=== PATIENT | male | born 1955 | race Caucasian/White ===

== ENCOUNTER 2016-10-28 21:56 | Emergency (ER) | payer OTHER ==
[~2016-10-28] VITALS: Ht 175.3 cm; Wt 81.8 kg
[~2016-10-28 21:56] MED LIST: GEMF600T3 PO; OXYC1TAB24 PO; SERT25TA6 PO; ZES5 PO; ZYL100 PO
[2016-10-28 22:05] VITALS: BP 154/89; PULSE 71; RESP 16; O2SAT 100
--- NOTE | 2016-10-28 22:29 | ED.REPORT ---
HPI-Abd Pain M 40 and Over Date of Service Oct 28, 2016 ED Provider: Waldemar Ellis MD Patient is a 60 year old male with a history of hypertension, hyperlipidemia, and kidney stones with prior lithotripsy who presents to the ED complaining of hematuria that began 1 month ago. Patient believes that he is currently passing a kidney stone. Patient reports associated abdominal pain, but also states that he has some chest pain. Patient states that his chest pain began at a similar time as his hematuria. Patient denies shortness of breath or dyspnea on exertion. Patient has nitroglycerin at home, which he has not used. Patient reports taking 4x 81mg aspirin earlier today. Patient also reports being constipated due to the narcotic pain medication for his chronic neck pain. Patient states that his girlfriend is currently admitted to [facility] for "the same thing". Patient admits to chills but denies nausea, vomiting, or fever. Patient is a difficult historian. Nursing Notes Stated Complaint: HEART, POSS KIDNEY STONES Chief Complaint: Male Abdominal Pain Nursing Notes Reviewed: Yes Allergies: Coded Allergies: No Known Allergies (Verified , 01/15/13) Scheduled ([Lisinopril]) MG PO DAILY Allopurinol (Allopurinol) 100 Mg Tablet 100 MG PO DAILY Gemfibrozil (Gemfibrozil) 600 Mg Tablet 600 MG PO BID Sertraline HCl (Sertraline) 25 Mg Tablet 75 MG PO BID Scheduled PRN Ondansetron ODT (Ondansetron ODT) 8 Mg Tab.rapdis 8 MG PO QID PRN PRN For Nausea oxyCODONE-Acetaminophen 5-325 mg (oxyCODONE-Acetaminophen 5-325 mg) 1 Each Tablet 1-2 TAB PO Q4H PRN PRN For Pain General Time Seen by MD: 22:28 Chief Complaint Other (hematuria) Hx Obtained From: Patient Arrived By: Walk-in Sudden in Onset?: No Onset Occurred: More than a week ago... (1 month) Symptom Duration: Since onset Progression since Onset: Gradually worsening Quality: Painful Severity: Current: Moderate Severity: Maximum: Moderate Recent Healthcare: No recent doctor visit, No recent hospitalization Similar Sx Previous: Yes Past Medical History Past Medical History kidney stones heart murmur Reports: Hyperlipidemia, Hypertension Past Surgical History lithotripsy right shoulder surgery Reports: Back/neck surgery Smoking History Former Smoker Social History Other Social History: Good social support, Local resident Ambulatory Status Independent Review of Systems Constitutional: Denies: Chills, Fever Respiratory: Denies: Dyspnea on exertion, Shortness of breath Cardiovascular: Reports: Chest pain, Denies: Dyspnea on exertion GI: Reports: Abdominal pain, Denies: Diarrhea, Nausea, Vomiting Male: Reports Hematuria Complete sys rev & neg: except as marked. Physical Exam Initial Vital Signs Vital Signs (First) Date Time Temp Pulse Resp B/P Pulse Ox O2 Delivery O2 Flow Rate FiO2 10/28/16 22:05 36.2 71 16 154/89 100 Room Air Initial VS: Reviewed Skin: Warm, Dry, No cyanosis Neurologic: Alert, Oriented, Nonfocal Psychiatric: Mood/affect normal, Behavior normal, Normal thought content General/Constitutional: Awake, Alert, No acute distress Respiratory / Chest: Breath sounds NL, Breath sounds = bilat, No respiratory distress, No rales, No rhonchi, No wheezing Cardiovascular: Heart rate NL, Regular rhythm, Heart sounds NL, No murmurs Abdomen: Soft, No guarding, No rebound Tenderness/Guarding/Rebound: Positive: Tender epigastric tender below the ribs, right Back: No midline vertebral tend Flank / Spine / Paraspinal: Positive: Flank tender R Head / Eyes: Atraumatic, Normocephalic, PERRL ENT: Airway patent Dental / Gums: Positive: Dentition poor Neck: Supple, No JVD Upper Extremity / MS: No swelling, No edema Lower Extremity / Pelvis / MS: No swelling, No edema Interpretation & Diagnostics Lab Results Interpretation Result Diagram: 10/28/165 10/28/165 Test 10/28/16 22:45 10/28/16 22:57 White Blood Count 6.8th/mm3 (3.8-10.1) Red Blood Count 4.11mil/mm3 (4.40-5.80) Hemoglobin 13.6g/dL (13.8-17.2) Hematocrit 39.4% (41.0-50.0) Mean Corpuscular Volume 95.9fL (81-100) Mean Corpuscular Hemoglobin 33.1pg (27.0-35.0) Mean Corpuscular Hemoglobin Concent 34.5% (32.0-37.0) Red Cell Distribution Width 11.9% (12.3-15.4) Platelet Count 165bil/L (150-400) Neutrophils (%) (Auto) 50.8% (40-74) Lymphocytes (%) (Auto) 36.4% (14-46) Monocytes (%) (Auto) 10.3% (4-12) Eosinophils (%) (Auto) 1.2% (0-5) Basophils (%) (Auto) 0.6% (0-3) Prothrombin Time 10.2sec (8.1-12.5) Prothromb Time International Ratio 0.95ratio Sodium Level 140mEq/L (134-144) Potassium Level 4.1mEq/L (3.5-5.2) Chloride Level 102mEq/L (97-108) Carbon Dioxide Level 22mmol/L (18-29) Blood Urea Nitrogen 19mg/dL (8-27) Creatinine 0.94mg/dL (0.76-1.27) Estimat Glomerular Filtration Rate 87mL/min (>59) Glucose Level 117mg/dL (60-99) Calcium Level 9.3mg/dL (8.5-10.1) Magnesium Level 2.1mg/dL (1.6-2.6) Total Bilirubin 0.3mg/dL (0.0-1.2) Aspartate Amino Transf (AST/SGOT) 16U/L (0-50) Alanine Aminotransferase (ALT/SGPT) 8U/L (0-44) Alkaline Phosphatase 78U/L (25-160) Troponin T 0.010ug/L (0.0-0.011) Total Protein 7.4g/dL (6.4-8.4) Albumin 4.6g/dL (3.4-5.0) Lipase 46U/L (13-60) Hold Rosado Top Tube Received (Received) Urine Color Red (YELLOW) Urine Appearance Hazy (CLEAR,HAZY) Urine pH 5.0 (5.0-8.0) Urine Specific [place] 1.010 (1.003-1.035) Urine Protein 30mg/dL (NEG,TRACE) Urine Glucose (UA) Negativemg/dL (NEGATIVE) Urine Ketones Negativemg/dL (NEGATIVE) Urine Occult Blood Large (NEGATIVE) Urine Nitrite Negative (NEGATIVE) Urine Bilirubin Negative (NEGATIVE) Urine Urobilinogen Normalmg/dL (NORMAL) Urine Leukocyte Esterase Negative (NEGATIVE) Urine RBC >50/hpf (0-2) Urine WBC 0-5/hpf (0-5) Urine Epithelial Cells Occasional/hpf (NONE-MOD) Urine Crystals Amorphous urates (NONE Urine Bacteria None/hpf (NONE-FEW) Urine Hyaline Casts None/lpf (NONE) Urine Granular Casts None seen (NONE SEEN) Urine Waxy Casts None seen (NONE SEEN) Urine Red Blood Cell Casts None seen (NONE SEEN) Urine White Blood Cell Casts None seen (NONE SEEN) Urine Mucus None seen (None Seen) Urine Trichomonas None seen (NONE SEEN) Urine Yeast None (NONE SEEN) Urine Culture Reflexed Not indicated ECG Interpretation ECG Interpretation: Sinus rhythm, Rate 62 Probable left atrial enlargement Probable inferior infarct, age indeterminate Time: 22:35 Interpreted by: ED physician Normal ECG Interpretation: No acute ischemic changes X-Ray Chest Interpretation Chest Xray Interpretation: Impression: Atelectasis at the bases. No acute process. View: Portable Interpretation / Wet Read by: Wet read ED physician CT Abd / Pelvis Interpretation CONCLUSION: Left nephrolithiasis without evidence of hydronephrosis. Diverticulosis without CT evidence of colitis. Degenerative and postoperative changes of the lower lumbar spine at L4-5 and L5-S1. Radiologist: Gennaro Huang MD 10/29/2016 - 12:47:42 AM PDT Study type: Abdominal CT no contrast Interpretation / Wet Read by: Interpret - Radiologist Re-Eval/Medical Decision Med Decision/Clinical Course 60-year-old multiple complaints and concerns, but primarily concerned about kidney stone and abdominal discomfort. CAT scan does not show any hydronephrosis or obstruction. No stone present and visible. No other significant findings. He is relieved by all of this and is acting home. No evidence of acute coronary syndrome and no other significant findings on evaluation. Discharged in stable condition. Source of Hx: Old records Time of Eval: 03:02 Patient Status: Condition improved Re-Evaluation/Progress Note: Rechecked the patient, who has been sleeping in the ED comfortably. Discussed the results of his chest x-ray, labs, and CT scan. Patient understands and agrees with the plan to be discharged home. Discharge instructions and follow-up discussed. All questions were addressed. Return to the ED warnings given. Counseled Regarding: Diagnosis, Lab results, Need for follow-up, When/why to return to ED Discharge & Departure Primary Impression: Hematuria Additional Impressions: Nephrolithiasis Abdominal pain Abdominal location: upper abdomen Qualified Code: R10.10 - Upper abdominal pain, unspecified Disposition: Home Vital Signs - All Vital Signs Date Time Temp Pulse Resp B/P Pulse Ox O2 Delivery O2 Flow Rate FiO2 10/29/16 03:30 36.9 68 14 122/68 97 Room Air 10/29/16 01:00 36.8 78 14 128/74 98 Room Air 10/28/16 22:05 36.2 71 16 154/89 100 Room Air )( All Prior VS Reviewed: Yes Condition: Stable Patient Instructions: Acute Hematuria (ED), Nephrolithiasis (ED) Additional Instructions: Continue your current medications. Follow-up with your doctor in the office. We do not find evidence of active stone passage, or any other dangerous pathology on your CAT scan. Return if your pain is worsening, if you develop uncontrolled vomiting, or have any other new symptoms of concern. You may use Zofran under your tongue if needed for nausea up to four times a day. Scribe Attestation Portions of this note were transcribed by Miley Rodriguez. I, Dr. Ellis personally performed the history, physical exam and medical decision-making; I reviewed and confirmed the accuracy of the information in the transcribed note. Signed by: Taryn Hoffman, 10/29/2016 0436 Waldemar Ellis MD Oct 28, 2016 22:28 Miley Rodriguez Oct 28, 2016 22:36
[2016-10-28] MEDS ORDERED: 0.9% Sodium Chloride 1,000 ML IV ONE (22:34)
[2016-10-28] MEDS ORDERED: Pantoprazole 4 mg/mL 10 mL Inj IVPUSH ONE (22:35)
[2016-10-28 23:05] LABS: BASOPHILS % (AUTO) 0.6 % (0-3); EOSINOPHILS % (AUTO) 1.2 % (0-5); MONOCYTES % (AUTO) 10.3 % (4-12); Mean Corpuscular Hemoglobin 33.1 pg (27.0-35.0); Mean Corpuscular Volume 95.9 fL (81-100); NEUTROPHILS % (AUTO) 50.8 % (40-74); Platelet Count 165 bil/L (150-400)
[2016-10-28 23:12] LABS: APPEARANCE,URINE HAZY (CLEAR,HAZY); COLOR,URINE RED (YELLOW); OCCULT BLOOD,URINE LARGE (NEGATIVE); UROBILINOGEN,URINE NORMAL (NORMAL)
[2016-10-28 23:23] LABS: INR 0.95 ratio
[2016-10-28 23:29] LABS: TROPONIN T 0.01 ug/L (0.0-0.011)
[2016-10-28 23:40] LABS: Magnesium 2.1 mg/dL (1.6-2.6)
[2016-10-29 01:00] VITALS: BP 128/74; PULSE 78; RESP 14; O2SAT 98
[2016-10-29] MEDS ORDERED: ONDA8TAB10 PO (03:07)
[2016-10-29 03:30] VITALS: BP 122/68; PULSE 68; RESP 14; O2SAT 97
--- NOTE | 2016-10-29 08:09 | DRSVH ---
PROCEDURE: X-RAY CHEST, TWO VIEWS ([id number]) INDICATIONS: cp TECHNIQUE: 2 views of the chest were acquired. COMPARISON: [facility], CR, XR CHEST 1V PORTABLE, 10/23/2016, 4:52 PM. FINDINGS: Surgical changes and devices: None. Lungs and pleura: Mild atelectasis is present at the left lung base. The lungs are otherwise clear. N o pleural effusion or pneumothorax. Mediastinum: Mediastinal contours are normal. Heart size is normal. Bones and chest wall: No suspicious bony abnormalities. Soft tissues appear unremarkable. IMPRESSION: No acute cardiopulmonary findings. Dictated by: Cleopatra Tovar M.D. on 10/29/2016 at 8:07 Approved by: Clepoatra Tovar M.D. on 10/29/2016 at 8:08
--- NOTE | 2016-10-29 11:54 | DRSVH ---
PROCEDURE: CT ABDOMEN AND PELVIS WITH CONTRAST ([id number]) INDICATIONS: flank pain, hematuria, bloating abdo TECHNIQUE: After the administration of intravenous contrast, 5 mm thick sections acquired from the diaphragm to the symphysis. 5 mm coronal and sagittal reformats were acquired. For radiation dose reduction, the following was used: automated exposure control, adjustment of mA and/or kV according to patient sidulce maria jennings. COMPARISON: [facility], CT, KUB - CT (ABD/PEL W/O CONT), 04/25/2014, 14:59. FINDINGS: Image quality: Excellent. ABDOMEN: Lung bases: Lung bases are clear. Heart size is normal. Solid organs: Liver is mildly enlarged with unchanged low attenuation foci. These are suggestive of cysts. The spleen is normal in size and enhancement. Subcentimeter low attenuation foci are present w ithin the posterior hepatic lobe, unchanged over multiple prior exams. Gallbladder is unremarkable. Biliary system is non dilated. Pancreas enhances normally. No adrenal nodules. Kidneys demonstrate normal size and enhancement, without hydronephrosis. Punctate nonobstructing bilateral inferior robyn e renal calculi, the largest on the left measuring 4 mm. The left-sided calcification was present on the 04/25/14 exam. The right inferior pole calcification appears new since that examination. There is a new left renal pelvic calcification measuring 12 mm Hounsfield unit 667. There is no discernible hyd ronephrosis. Peritoneum and bowel: Bowel loops demonstrate normal wall thickness and caliber. No free fluid or a ir. Minimal scattered diverticula are present without inflammatory change. Nodes and vessels: No retroperitoneal or mesenteric adenopathy by size criteria. Aorta and inferior vena cava are normal in size. Miscellaneous: No ventral hernias. PELVIS: Genitourinary: Bladder wall is diffusely thickened and incompletely distended. Miscellaneous: No inguinal hernias or adenopathy. Bones: No suspicious bony lesions. No vertebral body compression fractures. IMPRESSION: 1. Bilateral renal calculi without obstruction. 2. Diverticulosis. Dictated by: Rajwinder Olmedo M.D. on 10/29/2016 at 11:40 Approved by: Rajwinder Olmedo M.D. on 10/29/2016 at 11:53
[2016-11-06] MEDS ORDERED: LEVO100C2 PO (13:50)
[2016-11-06] MEDS ORDERED: ATRV10T PO (13:50)
[2016-11-06] MEDS ORDERED: LISI-567 PO (13:50)
[2016-11-06] MEDS ORDERED: HYDR-3825 PO (13:50)
[2016-11-06] MEDS ORDERED: OMEP20CA11 PO (13:50)
[2016-11-06] MEDS ORDERED: METO25TA6 PO (13:50)
[2016-11-06] MEDS ORDERED: COLC0.6T52 PO (13:50)
[2016-11-06] MEDS ORDERED: TAMS0.4C98 PO (13:50)
[2016-12-02] MEDS ORDERED: metoprolol (15:47)
[2016-12-02] MEDS ORDERED: lisinopril (15:47)
[2016-12-02] MEDS ORDERED: LISI-567 PO (15:58)
[2017-01-07] MEDS ORDERED: IBUP-1827 PO (08:02)
[2017-01-07] MEDS ORDERED: OXYC-474 PO (08:02)
[2017-01-07] MEDS ORDERED: FIBERCON PO (08:02)
[2017-01-07] MEDS ORDERED: COLC0.6T52 PO (08:02)
== END 2016-10-29 03:31 | disposition home or self-care (01) ==
LOC: SED 21:56
DX: R31.9 Hematuria, unspecified (principal); N20.0 Calculus of kidney; R10.10 Upper abdominal pain, unspecified; R07.9 Chest pain, unspecified; I10 Essential (primary) hypertension; E78.5 Hyperlipidemia, unspecified; K57.90 Diverticulosis of intestine, part unspecified, without perforation or abscess without bleeding; Z98.890 Other specified postprocedural states; Z87.891 Personal history of nicotine dependence
CPT/HCPCS: 36415; 71020; 74177; 80053; 81000; 82948; 83690; 83735; 84484; 85025; 85610; 87040; 93005; 96361; 96374; 96375; 99285; J7030; Q9967

== ENCOUNTER 2016-11-01 14:00 | Emergency (ER) | payer OTHER ==
[~2016-11-01 14:00] MED LIST changes: +ONDA8TAB10 PO
[2016-11-01 14:09] VITALS: BP 154/87; PULSE 75; RESP 16; O2SAT 97
[2016-11-01 14:52] LABS: BASOPHILS % (AUTO) 0.5 % (0-3); EOSINOPHILS % (AUTO) 0.7 % (0-5); MONOCYTES % (AUTO) 7.3 % (4-12); Mean Corpuscular Hemoglobin 32.7 pg (27.0-35.0); Mean Corpuscular Volume 95.8 fL (81-100); NEUTROPHILS % (AUTO) 65.7 % (40-74); Platelet Count 178 bil/L (150-400)
--- NOTE | 2016-11-01 15:20 | ED.REPORT ---
HPI-Chest Pain 40 and Over Date of Service Nov 01, 2016 ED Provider: Valdez Rahman MD The patient is a 60 year old male w/ a hx of HTN and hyperlipidemia who presents to the ED due chest pain for the past couple weeks. It has increased in severity and the nitroglycerin does not help. He has a 12 mm kidney stone in the kidney on the right side. C/o associated hematuria and constipation. PCP is Dr. Swann. Denies fever, shaking, chills. Recently had a stress test. Nursing Notes Stated Complaint: CHEST PAIN Chief Complaint: Chest Pain Nursing Notes Reviewed: Yes Allergies: Coded Allergies: No Known Allergies (Verified , 01/15/13) Scheduled ([Lisinopril]) MG PO DAILY Allopurinol (Allopurinol) 100 Mg Tablet 100 MG PO DAILY Gemfibrozil (Gemfibrozil) 600 Mg Tablet 600 MG PO BID Sertraline HCl (Sertraline) 25 Mg Tablet 75 MG PO BID Scheduled PRN Ondansetron ODT (Ondansetron ODT) 8 Mg Tab.rapdis 8 MG PO QID PRN PRN For Nausea oxyCODONE-Acetaminophen 5-325 mg (oxyCODONE-Acetaminophen 5-325 mg) 1 Each Tablet 1-2 TAB PO Q4H PRN PRN For Pain General Time Seen by MD: 15:20 Chief Complaint Chest pain Hx Obtained From: Patient Arrived By: Walk-in Sudden in Onset?: Yes Onset Occurred: More than a week ago... (3 weeks) Symptom Duration: Since onset Location: : Chest left Radiation: : Does not radiate Severity: Current: Mild Recent Healthcare: No recent doctor visit, No recent hospitalization Similar Sx Previous: No Past Medical History Past Medical History kidney stones heart murmur Reports: Hyperlipidemia, Hypertension Past Surgical History lithotripsy right shoulder surgery Reports: Back/neck surgery Smoking History Former Smoker Social History Other Social History: Good social support, Local resident Ambulatory Status Independent Review of Systems Constitutional: Denies: Chills, Fever Cardiovascular: Reports: Chest pain GI: Reports: Constipation Neurologic: Denies: Shaking Complete sys rev & neg: except as marked. Female: Reports: Hematuria Physical Exam Initial Vital Signs Vital Signs (First) Date Time Temp Pulse Resp B/P Pulse Ox O2 Delivery O2 Flow Rate FiO2 11/01/16 14:09 36.6 75 16 154/87 97 Room Air Initial VS: Reviewed Head / Eyes: Atraumatic, Normocephalic, PERRL ENT: Mucous membranes moist, Conjunctiva normal, No scleral icterus Neck: Supple, Non-tender, Full range of motion Extremities: Vascular intact, Neuro intact, No swelling, No tenderness Skin: Warm, Dry, No cyanosis Psychiatric: Mood/affect normal, Behavior normal, Normal thought content General/Constitutional: Awake, Alert, No acute distress, Cooperative, Not toxic appearing Respiratory / Chest: Atraumatic, Breath sounds NL, No respiratory distress Cardiovascular: Heart rate NL, Regular rhythm, Heart sounds NL, No gallop Abdomen: Atraumatic, Soft, Non-tender Interpretation & Diagnostics Interpretation & Diagnostics: 10/23/16 Abnormal Myocardial Perfusion study: Negative for myocardial ischemia Assemssment of ventrical function shows normal wall motion and normal global systolic function. This is an intermediate risk study 10/24/16 [facility] echocardiogram: small pericardial effusion mild basilar inferior with basilar inferolateral LV hypokinesis and an LVEF of 60%. Noraml RV size and stystolic function. Anterior mitral leaflet prolapse is seen with at least moderate eccentric regurgiation. Normal RV size and systolic function. Lab Results Interpretation Result Diagram: 11/01/16 1440 11/01/16 1440 Test 11/01/16 14:40 White Blood Count 7.7th/mm3 (3.8-10.1) Red Blood Count 4.04mil/mm3 (4.40-5.80) Hemoglobin 13.2g/dL (13.8-17.2) Hematocrit 38.7% (41.0-50.0) Mean Corpuscular Volume 95.8fL (81-100) Mean Corpuscular Hemoglobin 32.7pg (27.0-35.0) Mean Corpuscular Hemoglobin Concent 34.1% (32.0-37.0) Red Cell Distribution Width 12.0% (12.3-15.4) Platelet Count 178bil/L (150-400) Neutrophils (%) (Auto) 65.7% (40-74) Lymphocytes (%) (Auto) 25.3% (14-46) Monocytes (%) (Auto) 7.3% (4-12) Eosinophils (%) (Auto) 0.7% (0-5) Basophils (%) (Auto) 0.5% (0-3) Sodium Level 140mEq/L (134-144) Potassium Level 4.6mEq/L (3.5-5.2) Chloride Level 103mEq/L (97-108) Carbon Dioxide Level 22mmol/L (18-29) Blood Urea Nitrogen 17mg/dL (8-27) Creatinine 1.18mg/dL (0.76-1.27) Estimat Glomerular Filtration Rate 67mL/min (>59) Glucose Level 110mg/dL (60-99) Calcium Level 9.1mg/dL (8.5-10.1) Magnesium Level 2.2mg/dL (1.6-2.6) Total Bilirubin 0.4mg/dL (0.0-1.2) Aspartate Amino Transf (AST/SGOT) 17U/L (0-50) Alanine Aminotransferase (ALT/SGPT) 8U/L (0-44) Alkaline Phosphatase 86U/L (25-160) Troponin T < 0.010ug/L (0.0-0.011) Total Protein 7.1g/dL (6.4-8.4) Albumin 4.4g/dL (3.4-5.0) ECG Interpretation Time: 14:52 Interpreted by: ED physician Normal ECG Interpretation: Normal rate (56), Normal sinus rhythm X-Ray Chest Interpretation Chest Xray Interpretation: IMPRESSION: No acute cardiopulmonary disease process. Dictated by: Cleo Camacho MD, PhD on 11/01/2016 at 15:46 Approved by: Cleo Camacho MD, PhD on 11/01/2016 at 15:47 View: Portable Interpretation / Wet Read by: Interpret - Radiologist Re-Eval/Medical Decision Med Decision/Clinical Course 60 male with prolonged chest pain and recent negative stress test. No evidence for ischemia today. PE considered, not tachycardic, no leg swelling. Counseled Regarding: Diagnosis, Lab results, Need for follow-up, When/why to return to ED Discharge & Departure Primary Impression: Non-cardiac chest pain Disposition: Home Discharge Condition All VS Reviewed: Yes Condition: Stable Additional Instructions: Emergency department evaluation today included, examination, ECG labs and review of recent cardiac testing including echocardiogram and stress test. There is no evidence on previous stress testing to suggest that there is coronary artery disease as a cause of chest pain. Our testing today is also quite reassuring. We note your report of constipation, would suggest some milk of magnesia to see if that helps. Follow up with cardiology in [place] as previously directed. Follow-up with primary care soon as well. Return emergency Department for fevers and increasing shortness of breath or other new worrisome symptoms. Thanks for interesting as with your care today. Referrals: Hal Swann MD (PCP) Scribe Attestation Portion of this note were transcribed by Ivon Gregory. I, Dr. Rahman, personally performed the history, physical exam, and medical decision-making: I reviewed and confirmed the accuracy for the information in the transcribed note. Signed by: man Qureshi, 11/01/16 1800 copies to: Hal Swann MD, Donald L MD Nov 01, 2016 15:20 Ivon Gregory Nov 01, 2016 16:21
[2016-11-01 15:21] LABS: TROPONIN T < 0.010 ug/L (0.0-0.011)
[2016-11-01 15:27] LABS: Magnesium 2.2 mg/dL (1.6-2.6)
--- NOTE | 2016-11-01 15:48 | DRSVH ---
PROCEDURE: X-RAY CHEST ONE VIEW, PORTABLE ([id number]) INDICATIONS: CHEST PAIN TECHNIQUE: One view of the chest was acquired. COMPARISON: [facility], CR, XR CHEST 1V PORTABLE, 10/23/2016, 4:52 PM. [facility], CR, XR CHEST 2VW, 10/28/2016, 22:40. FINDINGS: Surgical changes and devices: Cervical spine orthopedic hardware. Lungs and pleura: No pleural effusions or pneumothorax. Lungs are clear. Mediastinum: Mediastinal contours appear normal. Heart size is normal. Bones and chest wall: No suspicious bony lesions. Overlying soft tissues appear unremarkable. IMPRESSION: No acute cardiopulmonary disease process. Dictated by: Cleo Camacho MD, PhD on 11/01/2016 at 15:46 Approved by: Cleo Camacho MD, PhD on 11/01/2016 at 15:47
[2016-11-01 16:10] VITALS: BP 103/66; PULSE 59; RESP 20; O2SAT 97
[2016-11-01 18:22] VITALS: BP 118/71; PULSE 58; RESP 17; O2SAT 96
[2016-11-06] MEDS ORDERED: ATRV10T PO (13:50)
[2016-11-06] MEDS ORDERED: METO25TA6 PO (13:50)
[2016-11-06] MEDS ORDERED: LISI-567 PO (13:50)
[2016-11-06] MEDS ORDERED: OMEP20CA11 PO (13:50)
[2016-11-06] MEDS ORDERED: LEVO100C2 PO (13:50)
[2016-11-06] MEDS ORDERED: COLC0.6T52 PO (13:50)
[2016-11-06] MEDS ORDERED: HYDR-3825 PO (13:50)
[2016-11-06] MEDS ORDERED: TAMS0.4C98 PO (13:50)
[2016-12-02] MEDS ORDERED: lisinopril (15:47)
[2016-12-02] MEDS ORDERED: metoprolol (15:47)
[2016-12-02] MEDS ORDERED: LISI-567 PO (15:58)
[2017-01-07] MEDS ORDERED: OXYC-474 PO (08:02)
[2017-01-07] MEDS ORDERED: COLC0.6T52 PO (08:02)
[2017-01-07] MEDS ORDERED: IBUP-1827 PO (08:02)
[2017-01-07] MEDS ORDERED: FIBERCON PO (08:02)
== END 2016-11-01 18:25 | disposition home or self-care (01) ==
LOC: SED 14:00
DX: R07.89 Other chest pain (principal); R31.9 Hematuria, unspecified; K59.00 Constipation, unspecified; E78.5 Hyperlipidemia, unspecified; I10 Essential (primary) hypertension; N20.0 Calculus of kidney; Z87.891 Personal history of nicotine dependence

== ENCOUNTER 2016-11-08 10:39 | Day surgery (SDC) | payer OTHER ==
--- NOTE | 2016-11-07 10:39 | PCM.ANEPRE ---
Anesthesia Pre-Op Review Reason for Review: SURGEON'S REQUEST-RECENT ED VISIT FOR CHEST PAIN Anesthesia Recommendations: Proceed with Procedure Additional Comments Interpretation & Diagnostics as reported in ER visit from 11/01/16 Interpretation & Diagnostics: 10/23/16 Abnormal Myocardial Perfusion study: Negative for myocardial ischemia Assemssment of ventrical function shows normal wall motion and normal global systolic function. This is an intermediate risk study 10/24/16 [facility] echocardiogram: small pericardial effusion mild basilar inferior with basilar inferolateral LV hypokinesis and an LVEF of 60%. Noraml RV size and stystolic function. Anterior mitral leaflet prolapse is seen with at least moderate eccentric regurgiation. Normal RV size and systolic function. Non cardiac chest pain. Ok to proceed with cysto Chart Reviewed by: Killian Arias MD, MD Nov 07, 2016 10:39
[~2016-11-08] VITALS: Ht 175.3 cm; Wt 83.4 kg
[2016-11-08] VITALS (8 sets, daily range): BP systolic 114–164; BP diastolic 57–97; PULSE 54–62; RESP 14–19; O2SAT 95–100
[~2016-11-08 10:39] MED LIST changes: +ATRV10T PO; +COLC0.6T52 PO; +CeFAZolin Inj 2 GM in IV Premix 1 EACH IV ONE; +HYDR-3825 PO; +LEVO100C2 PO; +LISI-567 PO; +METO25TA6 PO; +OMEP20CA11 PO; -OXYC1TAB24 PO; +TAMS0.4C98 PO; -ZES5 PO
[2016-11-08] MEDS ORDERED: fentaNYL-PF 50 mCg/mL 2 mL Inj ONE (10:40)
[2016-11-08] MEDS ORDERED: Propofol 10,000 mCg/mL 20 mL Inj ONE (10:40)
[2016-11-08] MEDS ORDERED: Ondansetron 2 mg/mL 2 mL Inj ONE (10:40)
[2016-11-08] MEDS: Lactated Ringer's 1,000 ML IV SCH ×2 (11:19→13:07)
[2016-11-08] MEDS ORDERED: NITR0.4T6 PO (11:28)
[2016-11-08] MEDS ORDERED: OXYC10TA8 PO (11:28)
[2016-11-08] MEDS ORDERED: CeFAZolin Inj 2 gm / 50mL D5W IV ONE (11:37)
--- NOTE | 2016-11-08 12:56 | PCM.HPANE ---
Patient Data Surgeon Admitting Provider: Attending Provider:Mely Otoole MD Primary Care Physician:Nannette Mcintosh Other Provider:Mark Brink Anesthesia Reason for Visit Left Ureteral Stone Ht/WT & BMI Height (Feet): 5 Height (Inches): 9 Weight (Kilograms): 83.4 Body Mass Index 27.00 Allergies Coded Allergies: No Known Allergies (Verified , 11/06/16) Past Anesthesia History Anesthesia History: Denies:: Anesthesia Reactions, Malignant Hyperthermia Diabetes History Hx Diabetes?: No MRSA MRSA: No Medications Hypertension Medication: Yes (LISINOPRIL) Home Meds Incl Beta Miles: Yes Date Beta Miles Taken: Nov 08, 2016 Time Beta Miles Taken: 0700 Active Scripts Ondansetron ODT 8 Mg Tab.rapdis8 Mg PO QID PRN For Nausea #20 TABLET Prov:Waldemar Ellis MD 10/29/16 Reported Medications oxyCODONE 10 Mg Hupfbg38 Mg PO 5X DAILY #120 11/08/16 Nitroglycerin SL 0.4 Mg Tab.subl0.4 Mg PO PRN #25 11/08/16 Levothyroxine (Tirosint)100 Mcg Wylamtl56 Mcg PO DAILY please verify dosage 11/06/16 Tamsulosin (Flomax)0.4 Mg Capsule0.8 Mg PO DAILY Ref 0 11/06/16 Omeprazole 20 Mg Capsule.dr20 Mg PO DAILY Ref 0 11/06/16 Metoprolol Tartrate 25 Mg Qunubi48 Mg PO BID 30 Days Ref 0 please verify dosage 11/06/16 Atorvastatin (Lipitor)10 Mg Tab10 Mg PO DAILY Ref 0 11/06/16 Lisinopril 20 Mg Gvlcus08 Mg PO DAILY 30 Days Ref 0 11/06/16 Allopurinol 100 Mg Rsdgfr855 Mg PO DAILY 30 Days Ref 0 06/08/14 Gemfibrozil 600 Mg Wlpabt750 Mg PO DAILY #60 TABLET 06/08/14 Discontinued Reported Medications Hydrocodone-Acetaminophen 7.5-325 mg 1 Each Tablet1 Tablet PO Q6H PRN For Pain Ref 0 11/06/16 Colchicine (Colcrys)0.6 Mg Tablet0.6 Mg PO prn PRN gout 11/06/16 Sertraline HCl (Sertraline)25 Mg Jlsekt98 Mg PO BID 30 Days Ref 0 06/08/14 [Lisinopril] No Conflict Check Mg PO DAILY 06/08/14 oxyCODONE-Acetaminophen 5-325 mg 1 Each Tablet1-2 Tab PO Q4H PRN For Pain Ref 0 06/08/14 History History of ENT Problems?: Yes HEENT History: Denies:: Cataracts Hearing Problem Denture Type: Full- Upper Teeth Condition: Missing Teeth Hx of Heart Problems?: Yes Cardiovascular History: Positive for:: Chest Pain (10/2016 ED visit for "non- cardiac" chest pain) Heart Murmur (ECHO 05/2008 EF 60-65%) Hypertension (HYPERLIPIDEMIA) Valvular Heart Disease (MOD. SEVERE MITRAL REGURG ) Denies:: Cardiac Surgery Congestive Heart Failure Irregular Heartbeat Pacemaker Other History/Comments non- cardiac chest pain, Nl stress echo 10/23, and no change in chest pain with use of SL nitro, able to walk 100= years without triggering onset of chest pain Hx of Respiratory Problem?: No Respiratory History: Denies:: Asthma COPD Emphysema Oxygen Administration Tuberculosis Use of C-PAP Machine Hx Neurologic Problems?: No Hx of GI Problems?: Yes Gastrointestinal History: Positive for:: Heartburn Denies:: Cirrhosis Diverticulitis (COLONOSCOPY SHOWED DIVERTICULOSIS, COLON POLYPS) Hepatitis Other GI Pertinent History: C/OF CONSTIPATION Hx of Problems?: Yes Genitourinary History: Positive for:: Kidney Stones (HX PRIOR STONES S/P CYSTO,LITHOTRIPSY LT KIDNEY STONE=CURRENT PROBLEM) Denies:: HX of Hemodialysis HX of Peritoneal Dialysis: No Other Pertinent History: C/OF HEMATURIA Male Hx: Denies:: Prostate Problems (PT UNSURE OF PROSTATE PROBLEMS, STATES IT SEEMS LIKE IT) Scrotal Mass Testicular Surgery Skin History: Denies:: History Skin Disorders? Pressure Ulcers Hx Musculoskeletal Problems?: Yes Musculoskeletal History: Positive for:: Back Injury Musculoskeletal Trauma (S/P RT SHOULDER RPR/BICEPS TENDON RPR) Hx of Psycho/Social Problems?: Yes Psycho Social History: Positive for:: Anxiety Hx Depression Hx Surgeries?: Yes (LITHOTRIPSY,MULT SPINE PROCEDURES INC. C4-5 ACDF,RT SHOULDER RPR/BICEPS TEN) Hx Any Other Health Problems?: Yes Other History: Positive for:: Thyroid Disease Denies:: Cancer Endocrine Disease Hospitalization History Blood Transfusions: Denies:: Blood Transfusions Hx Diabetes: No Hx Alcohol Use: No (QUIT 1 MONTH AGO)Hx Substance Use: Yes (HX MARIJUANA X 45YRS) Smoking Status: Former Smoker Have You Smoked inLast 12 mo: No ((+ MARIJUANA)) Stop/Bang S-Snoring: Do You Snore Loudly: No T-Tired: feel tired, fatigued: No O-Obsered: Observed not breath: No P-Blood Pressure: treated: Yes B- Body Mass Index > 35 kg/m2: No A- Age over 50: Yes N- Neck Large Circumference: No G- Gender Male: Yes RIC Total Score: 3 Risk Assessment Category Category 1A: Patient has history of documented sleep apnea, and HAS NOT received any narcotic, sedative or anesthesia administration during this stay. Category 1B: Patient has history of documented sleep apnea, and HAS received any narcotic , sedative or anesthesia administration during this stay Category 2: Patient has SUSPECTED Obstructive Sleep Apnea, and HAS received any narcotic , sedative or anesthesia administration during this stay. Category 3: Patient has SUSPECTED Obstructive Sleep Apnea and HAS NOT received narcotic, sedative or anesthesia administration during this stay. Category 4: Outpatient in Procedural Areas with known sleep apnea or who screen positive for High Risk via the STOP/BANG questionnaire. Exam Exam Vital Signs Vital Signs Date Time Temp Pulse Resp B/P Pulse Ox O2 Delivery O2 Flow Rate FiO2 11/08/16 11:28 35.5 57 14 130/81 96 Room Air General Appearance: Alert, Oriented X3, Cooperative HEENT/AIRWAY: MP 2 Lungs: Clear to Auscultation Heart: Exam Unremarkable Meds/Labs/Diagnostics Admission Meds Current Medications Lactated Ringer's (Lr) 1,000 ml @ 120 mls/hr Q8H20M IV Last administered on t 11:19; Start 11/08/16 at 05:00; Stop 11/08/16 at 13:19 Plan Impression Patient chart reviewed, patient interviewed and anesthestic plan with risks, benefits, and alternatives discussed, and informed consent obtained. NPO Status: 11/07/16 ASA Physical Status: ASA2 Mod Systemic Disease Anesthetic Plan: GA Bene/Risks/Altern/Consents: Yes HP Complete Prior to Induction: Yes Yassine Bañuelos MD Nov 08, 2016 12:56
[2016-11-08] MEDS ORDERED: Lactated Ringer's 500 ML IV PRN (13:41)
[2016-11-08] MEDS ORDERED: Lactated Ringer's 1,000 ML IV SCH (13:41)
[2016-11-08] MEDS ORDERED: fentaNYL-PF 50 mCg/mL 2 mL Inj IVPUSH PRN (13:45)
[2016-11-08] MEDS ORDERED: HYDROmorphone 1 mg/mL Inj IVPUSH PRN (13:45)
[2016-11-08] MEDS ORDERED: EPHEDrine Sulfate 50 mg/mL Inj IVPUSH PRN (13:45)
[2016-11-08] MEDS ORDERED: Dexamethasone 4 mg/mL Inj IVPUSH PRN (13:45)
[2016-11-08] MEDS ORDERED: Phenylephrine 10,000 mCg/mL Inj IVPUSH PRN (13:45)
[2016-11-08] MEDS ORDERED: Ondansetron 2 mg/mL 2 mL Inj IVPUSH PRN (13:45)
[2016-11-08] MEDS ORDERED: MetoCLOpramide 5 mg/mL 2 mL Inj IVPUSH PRN (13:45)
[2016-11-08] MEDS ORDERED: HYDROcodone-APAP 5-325 mg Tablet PO PRN (13:50)
[2016-11-08] MEDS ORDERED: Ondansetron 8 mg ODT Tablet PO PRN (13:50)
--- NOTE | 2016-11-08 13:53 | PCM.ANEP1 ---
Post Anesthesia Phase 1 PACU Phase 1 Assessment Vital Signs Vital Signs Date Time Temp Pulse Resp B/P Pulse Ox O2 Delivery O2 Flow Rate FiO2 11/08/16 11:28 35.5 57 14 130/81 96 Room Air Anesthetic Administered: GA Level of Alertness: Awake, talking ZAMORA's with Equal Strength: Yes Pain: No Nausea or Vomiting: No Oxygen Delivery: Simple Mask Lungs: Clear to Auscultation Dermatome Level: Full Sensation Yassine Bañuelos MD Nov 08, 2016 13:53
--- NOTE | 2016-11-08 14:05 | PCM.ANEP2 ---
Post Anesthesia Evaluation ASA/CMS Post Anesthesia VS in Patient's Normal Range?: Yes Resp Stable; Airway Patent?: Yes CV Function & Hydration Stable: Yes Mental Status Recovered?: Yes Pain control Satisfactory?: Yes N/V Control Satisfactory?: Yes Yassine Bañuelos MD Nov 08, 2016 14:05
--- NOTE | 2016-11-12 10:24 | OP ---
[address] [address] OPERATIVE REPORT PATIENT: JEREMY AYERS : 1955 MR#: [id number] ADMIT: 11/08/2016 JOB ID: [id number] DATE OF SURGERY: 11/08/2016 PROCEDURE: Cystoscopy with left-sided double-J stent placement. SURGEON: Mely Otoole M.D. ANESTHESIA: General. PREOPERATIVE DIAGNOSIS(ES): Large left-sided renal pelvis ureteropelvic junction stone, symptomatic. POSTOPERATIVE DIAGNOSIS(ES): Large left-sided renal pelvis ureteropelvic junction stone, symptomatic. INDICATIONS: The patient is a 61-year-old gentleman with a longstanding history of nephrolithiasis presenting again with a large greater than 1 cm UPJ renal pelvis stone causing severe intermittent problems electing temporization with a stent for the time being prior to hope for shock wave lithotripsy or ureteroscopy at a later date. PROCEDURE: After appropriate informed consent, this patient was brought to the operating room, received IV antibiotics prior to onset of the procedure. SCDs were placed. Adequate general anesthesia induced. She was carefully placed into a dorsal lithotomy position. All pressure points carefully padded. Cleaned, prepped, and draped in the usual sterile fashion. Rigid scope was introduced into the patient's bladder. The ureteral orifices were noted to be in orthotopic normal position. A wire was advanced into the left ureteral orifice. This passed nicely up into the renal pelvis. You could see the shadow of his large stone. A 6-Turkish double-J stent was advanced over the wire under fluoroscopic guidance into good position with a curl in the renal pelvis and a curl in the patient's bladder. The fit was nice. His bladder was drained. There was a minimal hematuria. He was awakened and taken in stable condition to the postanesthesia care unit. Plans will be to electively treat the stone at a future date.
[2016-12-02] MEDS ORDERED: lisinopril (15:47)
[2016-12-02] MEDS ORDERED: metoprolol (15:47)
[2016-12-02] MEDS ORDERED: LISI-567 PO (15:58)
[2017-01-07] MEDS ORDERED: IBUP-1827 PO (08:02)
[2017-01-07] MEDS ORDERED: OXYC-474 PO (08:02)
[2017-01-07] MEDS ORDERED: FIBERCON PO (08:02)
[2017-01-07] MEDS ORDERED: COLC0.6T52 PO (08:02)
== END 2016-11-08 23:59 | disposition home or self-care (01) ==
LOC: SAS 10:39
PROVIDERS: ATTEND Urology
DX: N20.0 Calculus of kidney (principal); I10 Essential (primary) hypertension; E78.2 Mixed hyperlipidemia; I38 Endocarditis, valve unspecified; M50.30 Other cervical disc degeneration, unspecified cervical region; G95.89 Other specified diseases of spinal cord; F12.90 Cannabis use, unspecified, uncomplicated; F41.9 Anxiety disorder, unspecified; Z87.891 Personal history of nicotine dependence
CPT/HCPCS: 52332; 76000; C2617; J0690; J1885; J2250; J2405; J3010; J7120

== ENCOUNTER 2016-12-05 05:50 | Day surgery (SDC) | payer OTHER ==
[~2016-12-05] VITALS: Ht 175.3 cm; Wt 83.2 kg
[2016-12-05] VITALS (9 sets, daily range): BP systolic 109–136; BP diastolic 62–93; PULSE 58–70; RESP 10–17; O2SAT 95–98
[~2016-12-05 05:50] MED LIST changes: -COLC0.6T52 PO; -CeFAZolin Inj 2 GM in IV Premix 1 EACH IV ONE; -HYDR-3825 PO; -METO25TA6 PO; +NITR0.4T6 PO; +OXYC10TA8 PO; -SERT25TA6 PO; +metoprolol
[2016-12-05] MEDS ORDERED: Propofol 10,000 mCg/mL 20 mL Inj ONE (05:51)
[2016-12-05] MEDS ORDERED: fentaNYL-PF 50 mCg/mL 2 mL Inj ONE (05:51)
[2016-12-05] MEDS ORDERED: MeTOProlol 1 mg/mL 5 mL Inj ONE (05:51)
[2016-12-05] MEDS ORDERED: CeFAZolin Inj 2 GM in IV Premix 1 EACH IV ONE (06:00)
[2016-12-05] MEDS: Lactated Ringer's 1,000 ML IV SCH ×2 (06:50→07:48)
--- NOTE | 2016-12-05 07:28 | PCM.HPANE ---
Patient Data Surgeon Admitting Provider: Attending Provider:Padmaja Hoffmann MD Primary Care Physician:Waldemar Swann DO Other Provider:Mark Brink Anesthesia Reason for Visit Left Kidney Stone Ht/WT & BMI Height (Feet): 5 Height (Inches): 9.00 Weight (Kilograms): 83.190 Body Mass Index 27.00 Allergies Coded Allergies: No Known Allergies (Verified , 11/06/16) Past Anesthesia History Anesthesia History: Denies:: Anesthesia Reactions, Fam Anesthesia Reaction, Fam Malignant Hypertherm, Malignant Hyperthermia Diabetes History Hx Diabetes?: No Type of Diabetes: Diet Controlled Glycemic Control: Diet Controlled MRSA MRSA: No Medications Hypertension Medication: Yes Home Meds Incl Beta Miles: Yes (HAS NOT TAKEN FOR 1 WEEK) Date Beta Miles Taken: Nov 27, 2016 Active Scripts Ondansetron ODT 8 Mg Tab.rapdis8 Mg PO QID PRN For Nausea #20 TABLET Prov:Waldemar Ellis MD 10/29/16 Reported Medications Lisinopril 20 Mg Upjeie84 Mg PO DAILY 30 Days Ref 0 12/02/16 [metoprolol] No Conflict CheckUnknown Dose DAILY 12/02/16 oxyCODONE 10 Mg Fvmazi02 Mg PO 5X DAILY #120 11/08/16 Nitroglycerin SL 0.4 Mg Tab.subl0.4 Mg PO PRN #25 11/08/16 Levothyroxine (Tirosint)100 Mcg Crxvaqz52 Mcg PO DAILY please verify dosage 11/06/16 Tamsulosin (Flomax)0.4 Mg Capsule0.8 Mg PO DAILY Ref 0 11/06/16 Omeprazole 20 Mg Capsule.dr20 Mg PO DAILY Ref 0 11/06/16 Atorvastatin (Lipitor)10 Mg Tab10 Mg PO DAILY Ref 0 11/06/16 Allopurinol 100 Mg Ydzcbl734 Mg PO DAILY 30 Days Ref 0 06/08/14 Gemfibrozil 600 Mg Nscyrd143 Mg PO DAILY #60 TABLET 06/08/14 Discontinued Reported Medications [lisinopril] No Conflict CheckUnknown Dose DAILY 12/02/16 Metoprolol Tartrate 25 Mg Boatdr15 Mg PO BID 30 Days Ref 0 please verify dosage 11/06/16 Lisinopril 20 Mg Qvcozm88 Mg PO DAILY 30 Days Ref 0 11/06/16 History History of ENT Problems?: Yes HEENT History: Denies:: Cataracts Hearing Problem Denture Type: None Teeth Condition: Missing Teeth Broken Teeth Hx of Heart Problems?: Yes Cardiovascular History: Positive for:: Chest Pain (10/2016 ED visit for "non- cardiac" chest pain) Heart Murmur (ECHO 05/2008 EF 60-65%) Hypertension (HYPERLIPIDEMIA) Valvular Heart Disease (MOD. SEVERE MITRAL REGURG ) Denies:: Cardiac Surgery Congestive Heart Failure Irregular Heartbeat Pacemaker Hx of Respiratory Problem?: No Respiratory History: Denies:: Asthma COPD Emphysema Oxygen Administration Tuberculosis Use of C-PAP Machine Hx Neurologic Problems?: No Neurological History: Denies:: Dizziness Headaches Multiple Sclerosis Parkinson's Disease Seizures Hx of GI Problems?: Yes Gastrointestinal History: Positive for:: Heartburn Denies:: Cirrhosis Diverticulitis Hepatitis Hx of Problems?: Yes Genitourinary History: Positive for:: Kidney Stones (left side current problem , surgery here 11/08) Denies:: HX of Hemodialysis Urinary Tract Infection HX of Peritoneal Dialysis: No Male Hx: Denies:: Prostate Problems Scrotal Mass Testicular Surgery Skin History: Denies:: History Skin Disorders? Pressure Ulcers Hx Musculoskeletal Problems?: Yes Musculoskeletal History: Positive for:: Back Injury Musculoskeletal Trauma (S/P RT SHOULDER RPR/BICEPS TENDON RPR) Hx of Psycho/Social Problems?: Yes Psycho Social History: Positive for:: Anxiety Hx Depression Denies:: Bipolar Disorder Hx Surgeries?: Yes (LITHOTRIPSY,MULT SPINE PROCEDURES INC. C4-5 ACDF,RT SHOULDER RPR/BICEPS TEN) Hx Any Other Health Problems?: Yes Other History: Positive for:: Thyroid Disease Denies:: Cancer Endocrine Disease Hospitalization History Blood Transfusions: Denies:: Blood Transfusions Hx Diabetes: No Hx Alcohol Use: NoHx Substance Use: Yes (marijuana) Smoking Status: Never Smoker Have You Smoked inLast 12 mo: No ((+ MARIJUANA)) Stop/Bang S-Snoring: Do You Snore Loudly: No T-Tired: feel tired, fatigued: No O-Obsered: Observed not breath: No P-Blood Pressure: treated: Yes B- Body Mass Index > 35 kg/m2: No A- Age over 50: Yes N- Neck Large Circumference: No G- Gender Male: Yes RIC Total Score: 3 Risk Assessment Category Category 1A: Patient has history of documented sleep apnea, and HAS NOT received any narcotic, sedative or anesthesia administration during this stay. Category 1B: Patient has history of documented sleep apnea, and HAS received any narcotic , sedative or anesthesia administration during this stay Category 2: Patient has SUSPECTED Obstructive Sleep Apnea, and HAS received any narcotic , sedative or anesthesia administration during this stay. Category 3: Patient has SUSPECTED Obstructive Sleep Apnea and HAS NOT received narcotic, sedative or anesthesia administration during this stay. Category 4: Outpatient in Procedural Areas with known sleep apnea or who screen positive for High Risk via the STOP/BANG questionnaire. Exam Exam Vital Signs Vital Signs Date Time Temp Pulse Resp B/P Pulse Ox O2 Delivery O2 Flow Rate FiO2 12/05/16 06:19 36 70 12 136/84 95 Room Air General Appearance: Alert, Oriented X3, Cooperative, No Acute Distress HEENT/AIRWAY: MP 2 Lungs: Clear to Auscultation, Normal Air Movement Heart: Exam Unremarkable, Regular Rate/Rhythm, No Murmurs/Rubs/Gallops Meds/Labs/Diagnostics Admission Meds Current Medications Lactated Ringer's (Lr) 1,000 ml @ 120 mls/hr Q8H20M IV Last administered on t 06:50; Start 12/05/16 at 05:00; Stop 12/05/16 at 13:19 Plan Impression Patient chart reviewed, patient interviewed and anesthestic plan with risks, benefits, and alternatives discussed, and informed consent obtained. ASA Physical Status: ASA3 Severe Disease Anesthetic Plan: GA Bene/Risks/Altern/Consents: Yes HP Complete Prior to Induction: Yes Other patient did not take beta miles therefore will treat with IV metoprolol pre induction Mario Vasquez MD Dec 05, 2016 07:14
[2016-12-05] MEDS ORDERED: Lactated Ringer's 500 ML IV PRN (07:55)
[2016-12-05] MEDS ORDERED: EPHEDrine Sulfate 50 mg/mL Inj IVPUSH PRN (07:55)
[2016-12-05] MEDS ORDERED: HYDROcodone-APAP 5-325 mg Tablet PO PRN (07:55)
[2016-12-05] MEDS ORDERED: fentaNYL-PF 50 mCg/mL 2 mL Inj IVPUSH PRN (07:55)
[2016-12-05] MEDS ORDERED: MetoCLOpramide 5 mg/mL 2 mL Inj IVPUSH PRN (07:55)
[2016-12-05] MEDS ORDERED: Lactated Ringer's 1,000 ML IV SCH (07:55)
[2016-12-05] MEDS ORDERED: Atropine 0.4 mg/mL Inj IVPUSH PRN (07:55)
[2016-12-05] MEDS ORDERED: Dexamethasone 4 mg/mL Inj IVPUSH PRN (07:55)
[2016-12-05] MEDS ORDERED: Labetalol 5 mg/mL 4 mL Inj IV PRN (07:55)
[2016-12-05] MEDS ORDERED: HYDROmorphone 1 mg/mL Inj IVPUSH PRN (07:55)
[2016-12-05] MEDS ORDERED: Ondansetron 2 mg/mL 2 mL Inj IVPUSH PRN (07:55)
[2016-12-05] MEDS ORDERED: Phenylephrine 10,000 mCg/mL Inj IVPUSH PRN (07:55)
--- NOTE | 2016-12-05 08:19 | PCM.ANEP1 ---
Post Anesthesia Phase 1 PACU Phase 1 Assessment Vital Signs Vital Signs Date Time Temp Pulse Resp B/P Pulse Ox O2 Delivery O2 Flow Rate FiO2 12/05/16 08:15 63 14 120/76 98 Room Air 12/05/16 08:10 64 13 124/76 96 Room Air 12/05/16 08:05 36.2 124/93 12/05/16 06:19 36 70 12 136/84 95 Room Air Anesthetic Administered: GA Level of Alertness: Awake, talking ZAMORA's with Equal Strength: Yes Pain: No Nausea or Vomiting: No Cardiovascular Function and Hy: Yes Oxygen Delivery: Room Air Lungs: Clear to Auscultation, Normal Air Movement Dermatome Level: Full Sensation Complications: No Follow up Care: No Patient Instructions Provided: Yes Mario Vasquez MD Dec 05, 2016 08:19
--- NOTE | 2016-12-05 09:22 | OP ---
[address] [address] OPERATIVE REPORT PATIENT: JEREMY AYERS : 1955 MR#: [id number] ADMIT: 12/05/2016 JOB ID: [id number] DATE OF SURGERY: 12/05/2016 PREOPERATIVE DIAGNOSIS(ES): Left kidney stone. POSTOPERATIVE DIAGNOSIS(ES): Left kidney stone. PROCEDURE PERFORMED: Left extracorporeal shockwave lithotripsy. SURGEON: Padmaja Hoffmann M.D. ALMOND PAN FINISHER: None. FINDINGS: Left lower pole kidney stone. ANESTHESIA: General. ESTIMATED BLOOD LOSS: None. DRAINS: None. SPECIMENS: None. COMPLICATION: None. CONDITION: Stable. INDICATION FOR PROCEDURE: The patient is a 61-year-old man status post left ureteral stent placement. He now presents for left extracorporeal shockwave lithotripsy. DESCRIPTION OF PROCEDURE: After informed consent was obtained, the patient was taken to the operating room. A time-out was performed identifying correct patient, surgical site and procedure. He has placed over the Lithotripter device. All pressure points were identified and appropriately padded. The stone was easily visible both on KUB as well as fluoroscopy. The stone was localized within the cross hairs and submitted to a total of 1500 shocks as the stone was already non-visible at a 1000 shocks. The power was ultimately achieved to a level of 5. At the end of the procedure, the stone was no longer visible under fluoroscopy. The patient appeared to tolerate the procedure well. He was reversed from general anesthesia, taken to PACU in good and stable condition. LALI
--- NOTE | 2016-12-05 10:03 | DRSVH ---
PROCEDURE: X-RAY KUB ([id number]) INDICATIONS: LEFT KIDNEY STONE TECHNIQUE: One view of the abdomen acquired. COMPARISON: [facility], CR, KUB, 06/09/2014, 7:53. [facility], CT, CT ABDO MEN PELVIS WO CONTRAST, 11/12/2016, 1:00 AM. FINDINGS: Surgical changes and devices: Stable positioning of left ureteral stent. The left unilateral fixatio n hardware at the L4-L5 level redemonstrated. Bowel: Bowel gas pattern is normal. Soft tissues: 1.8 cm calcification projected over the lower pole of the left kidney similar to prior CT scan. Bones: No suspicious bony lesions. IMPRESSION: The 1.8 cm calcification projecting to the inferior pole of the left kidney appears uncha nged. There is a left ureteral stent. Dictated by: Main LIAO Interpreted: Marcie Goyal MD on 12/05/2016 at 10:01 Transcribed by: HUMBLE on 12/05/2016 at 10:03 Approved by: Marcie Goyal M.D. on 12/05/2016 at 10:30
[2017-01-07] MEDS ORDERED: OXYC-474 PO (08:02)
[2017-01-07] MEDS ORDERED: FIBERCON PO (08:02)
[2017-01-07] MEDS ORDERED: IBUP-1827 PO (08:02)
[2017-01-07] MEDS ORDERED: COLC0.6T52 PO (08:02)
== END 2016-12-05 23:59 | disposition home or self-care (01) ==
LOC: SAS 05:50
PROVIDERS: ATTEND Urology
DX: N20.0 Calculus of kidney (principal); I10 Essential (primary) hypertension; M10.9 Gout, unspecified; E78.5 Hyperlipidemia, unspecified; K21.9 Gastro-esophageal reflux disease without esophagitis; I20.9 Angina pectoris, unspecified; E03.9 Hypothyroidism, unspecified; I25.2 Old myocardial infarction
CPT/HCPCS: 50590; 74000; J0690; J2250; J2405; J2765; J3010; J7120